=== PATIENT | female | born 1945 | race Caucasian/White ===

== ENCOUNTER 2017-04-09 21:11 | Emergency (ER) | payer MEDICARE ==
[~2017-04-09] VITALS: Ht 157.5 cm; Wt 41.0 kg
[~2017-04-09 21:11] MED LIST: ADDE10TA PO; DIAZ5TAB PO; LEVO50TA4 PO; MACR100C PO; PHEN-426 PO
[2017-04-09 21:13] VITALS: BP 171/67; PULSE 96; RESP 15; TEMP 97.8; O2SAT 95
--- NOTE | 2017-04-09 21:55 | PD ---
Physical Exam Date Seen by Provider: Apr 09, 2017 Time Seen by Provider: 21:53 Narrative 71-year-old white female presents to [facility] complains of left rib pain after a fall on Friday. She states that she had fallen onto her left ribs. Since then she's had pain that radiates around her left side to her back. Worse with taking a deep breath. She states the pain is severe. Rates it a 10/10. She does state that she feels short of breath. Worse with activities and taking a deep breath. She denies any neck or back pain. No numbness, tingling or weakness. Vital signs reviewed. Awaiting bed placement. Data Data Last Documented VS Vital Signs Date Time Temp Pulse Resp B/P (MAP) Pulse Ox O2 Delivery O2 Flow Rate FiO2 04/09/17 21:13 97.8 96 15 171/67 (101) [address] [facility] Medical Record Reviewed: No Supervised Visit with KIRIT: Heron Gunter Apr 09, 2017 21:55
[2017-04-09] MEDS ORDERED: ACETAMINOPHEN/HYDROcodone 325 MG/5 MG TAB PO ONE (22:45)
[2017-04-09] MEDS ORDERED: ONDANSETRON ODT 4 MG TAB PO ONE (22:45)
--- NOTE | 2017-04-09 22:47 | PD ---
HPI Chief Complaint: Fall Time Seen by Provider: 22:35 Travel History International Travel<30 days: No Contact w/Intl Traveler<30days: No Traveled to known affect area: No History of Present Illness HPI 71-year-old female with history of COPD, hypertension, presents to the emergency department for evaluation a left rib pain. Patient was standing on a "not very tall" ladder when she fell, striking her left rib cage on the dresser. She did not hit her head or lose consciousness. States that her ribs have been tender and she believes she is beginning to bruise. Is concerned one may be broken. Denies any difficulty breathing. Pain is a constant, aching, 6 out of 10 but with palpation or deep breath exacerbates to a 10 out of 10. His any hemoptysis. No abdominal pain, nausea, or vomiting. She has no other symptoms to report. PFSH Past Medical History Arthritis: No Asthma: No Autoimmune Disease: No Blood Disorders: No Bipolar Disorder: Yes Anxiety: Yes Depression: Yes Heart Rhythm Problems: No Cancer: No Cardiovascular Problems: No High Cholesterol: No Chemotherapy: No Chest Pain: No Congestive Heart Failure: No COPD: Yes Dementia: Yes Diabetes: No Diminished Hearing: No Endocrine: No Gastrointestinal Disorders: Yes (HX PEPTIC ULCER, GASTRITIS, PERFORATED STOMACH ULCER) GERD: No Genitourinary: No Headaches: Yes Hepatitis: No Hiatal Hernia: No Hypertension: Yes (at times but mostly runs normal) Immune Disorder: No Implanted Vascular Access Dvce: No Kidney Stones: No Musculoskeletal: Yes (PAIN DOWN RIGHT LEG POST HERNIATED DISC) Neurologic: No Psychiatric: No Reproductive: No Respiratory: Yes (HX PULMONARY EMBOLI) Migraines: Yes Radiation Therapy: No Renal Failure: No Schizophrenia: Yes Seizures: No Sickle Cell Disease: No Sleep Apnea: No Thyroid Disease: Yes (HYPOTHYROID) Ulcer: Yes Menopausal: Yes Past Surgical History Abdominal Surgery: Yes (RESECTION PEPTIC ULCER, 2 ABD HERNIA REPAIRS) AICD: No Arteriovenous Shunt: No Body Medical Devices: NONE Cardiac Surgery: No Ear Surgery: No Endocrine Surgery: No Eye Surgery: Yes (CATARACT LEFT EYE REMOVED 11/2015) Genitourinary Surgery: No Gynecologic Surgery: No Insulin Pump: No Joint Replacement: No Neurologic Surgery: No Oral Surgery: No Pacemaker: No Thoracic Surgery: No Other Surgery: Yes Social History Alcohol Use: No Tobacco Use: Yes (HAS SMOKED FOR 56+ YRS.) Substance Use: No Allergies-Medications (Allergen,Severity, Reaction): Coded Allergies: penicillin G (Unverified Allergy, Severe, Anaphylaxis, 04/09/17) latex (Unverified Allergy, Intermediate, Rash, 04/09/17) HAPPENS WITH PROLONGED CONTACT Reported Meds & Prescriptions Reported Meds & Active Scripts Active Ibuprofen 400 Mg Tab 400 Mg PO Q8H PRN Lortab (Hydrocodone-Acetaminophen) 5-325 Mg Tab 1 Tab PO Q6H PRN Pyridium (Phenazopyridine HCl) 100 Mg Tab 100 Mg PO TID Macrobid (Nitrofurantoin Macrocrystals) 100 Mg Cap 100 Mg PO BID Reported Levothyroxine 50 mcg (Levothyroxine Sodium) 50 Mcg Tab 50 Mcg PO DAILY Adderall 10 Mg Tab 10 Mg PO DAILY Diazepam 5 mg (Diazepam) 5 Mg Tab 5 Mg PO Q12 Review of Systems Except as stated in HPI: all other systems reviewed are Neg Physical Exam Narrative GENERAL: Well-nourished, well-developed email patient, ambulatory and in no acute distress SKIN: Focused skin assessment warm/dry. HEAD: Normocephalic. EYES: No scleral icterus. No injection or drainage. NECK: Supple, trachea midline. No JVD or lymphadenopathy. CARDIOVASCULAR: Regular rate and rhythm RESPIRATORY: Breath sounds diminished bilateral bases, equal bilaterally. No accessory muscle use. No crepitus to palpation of the thoracic cage. There is tenderness along the anterior lateral aspect of the left rib cage. Respirations GASTROINTESTINAL: Abdomen soft, non-tender, nondistended. No guarding. No rebound tenderness. No rigidity. MUSCULOSKELETAL: No cyanosis, or edema. BACK: Nontender without obvious deformity. No CVA tenderness. Data Data Last Documented VS Vital Signs Date Time Temp Pulse Resp B/P (MAP) Pulse Ox O2 Delivery O2 Flow Rate FiO2 04/09/17 21:13 97.8 96 15 171/67 (101) 95 Room Air Orders Orders Ribs, Uni (W/Exp Cxr-Min 3vw) (04/09/17 21:55) Acetamin-Hydrocod 325-5 Mg (Chancellor 5-325 (04/09/17 22:45) Ondansetron Odt (Zofran Odt) (04/09/17 22:45) Resp Incentive Spirometry (04/09/17 ) MDM Medical Decision Making Medical Screen Exam Complete: Yes Emergency Medical Condition: Yes Medical Record Reviewed: Yes Differential Diagnosis Rib contusion versus fracture versus pneumothorax versus visceral injury Narrative Course 21-year-old female presents to emergency department for evaluation of left rib pain following a fall. Patient appears without distress. Her abdominal exam is completely benign. She does have tenderness elicited palpation over the left anterolateral rib cage. X-ray imaging is without any acute bony abnormality. Patient is treated for pain, counseled on care, offered incentive spirometry and instructed to follow-up with her primary care provider. She agrees to return immediately with any acute worsening of symptoms. Diagnosis Primary Impression: Contusion of rib on left side Qualified Codes: S20.212A - Contusion of left front wall of thorax, initial encounter Referrals: Primary Care Physician Patient Instructions: General Instructions, Rib Contusion (ED) Additional Instructions: It is important that you take deep breaths and cough Incentive spirometer 10 times on the hour every hour while awake Return immediately to the emergency department with any acute worsening of symptoms Med/Other Pt SpecificInfo: Prescription(s) given Scripts Ibuprofen (Ibuprofen) 400 Mg Tab 400 MG PO Q8H Y for PAIN SCALE 1 TO 10, #30 TAB 0 Refills Prov: Erika Rivas 04/09/17 Hydrocodone-Acetaminophen (Lortab) 5-325 Mg Tab 1 TAB PO Q6H Y for PAIN GREATER THAN 6, #12 TAB 0 Refills Prov: Erika Rivas 04/09/17 Disposition: 01 DISCHARGE HOME Condition: Stable Erika Rivas Apr 09, 2017 22:47
--- NOTE | 2017-04-09 22:56 | RADRPT ---
EXAM DATE/TIME: 04/09/2017 22:05 [place] COMPARISON: No previous studies available for comparison. INDICATIONS : Left side rib pain since falling into a dresser 3 nights ago. MEDICAL HISTORY : None. SURGICAL HISTORY : None. ENCOUNTER: Initial ACUITY: 3 days PAIN SCORE: 10/10 LOCATION: Left chest FINDINGS: No acute fracture or dislocation of the left ribs. No pneumothorax is noted. Degenerative changes and scoliosis of the thoracolumbar spine. CONCLUSION: No acute fracture or dislocation of the left ribs. Degenerative changes and scoliosis of the thoracolumbar spine. Agustín Kenney MD on April 09, 2017 at 22:53 Board Certified Radiologist. This report was verified electronically.
[2017-04-09] MEDS ORDERED: IBUP400T20 PO (23:01)
[2017-04-09] MEDS ORDERED: HYDR-3533 PO (23:01)
== END 2017-04-10 00:58 | disposition home or self-care (01) ==
LOC: NEPK 21:11
DX: S20.212A Contusion of left front wall of thorax, initial encounter (principal); J44.9 Chronic obstructive pulmonary disease, unspecified; E03.9 Hypothyroidism, unspecified; F17.210 Nicotine dependence, cigarettes, uncomplicated; W11.XXXA Fall on and from ladder, initial encounter
CPT/HCPCS: 71101; 94150; 99283

== ENCOUNTER 2017-07-27 08:28 | Inpatient (IN) | payer MEDICARE ==
[~2017-07-27] VITALS: Ht 157.5 cm; Wt 43.4 kg
[~2017-07-27 08:28] MED LIST changes: +HYDR-3533 PO; +IBUP1TAB5 PO
[2017-07-27 08:30] VITALS: BP 154/71; PULSE 102; RESP 22; TEMP 97.7
[2017-07-27] MEDS ORDERED: inhaler (08:41)
[2017-07-27] MEDS ORDERED: MULTTAB67 PO (08:43)
[2017-07-27] MEDS ORDERED: anti-depressant (08:43)
[2017-07-27] MEDS ORDERED: ABIL15TA3 PO (08:43)
[2017-07-27] MEDS ORDERED: DIAZ5TAB PO (08:43)
[2017-07-27 09:04] VITALS: O2SAT 98
--- NOTE | 2017-07-27 09:11 | PD ---
HPI Chief Complaint: Musculoskeletal Complaint Time Seen by Provider: 08:50 Travel History International Travel<30 days: Yes Contact w/Intl Traveler<30days: Yes Name of Country Traveled to: [place] 07/12/17 Traveled to known affect area: Yes History of Present Illness HPI The patient was seen and examined in the presence of the nurse. This patient complains of 24 hours of pain and swelling and redness in her left ankle. No injury. No fever. Pain is worse with movement. Symptoms are moderate severity. No alleviating factors. She's had this happen 3 separate times in the past where a joint spontaneously got hot and red and swollen and painful. She does not have any specific diagnosis for the prior events. PFSH Past Medical History Arthritis: No Asthma: No Autoimmune Disease: No Blood Disorders: No Bipolar Disorder: Yes Anxiety: Yes Depression: Yes Heart Rhythm Problems: No Cancer: No Cardiovascular Problems: No High Cholesterol: No Chemotherapy: No Chest Pain: No Congestive Heart Failure: No COPD: Yes Dementia: Yes Diabetes: No Diminished Hearing: No Endocrine: No Gastrointestinal Disorders: Yes (HX PEPTIC ULCER, GASTRITIS, PERFORATED STOMACH ULCER) GERD: No Genitourinary: No Headaches: Yes Hepatitis: No Hiatal Hernia: No Hypertension: Yes Immune Disorder: No Implanted Vascular Access Dvce: No Kidney Stones: No Medical other: Yes (ANEMIA, ABDOMINAL HERNIA RIGHT LOWER ABDOMEN, MIGRAINES) Musculoskeletal: Yes (PAIN DOWN RIGHT LEG POST HERNIATED DISC) Neurologic: No Psychiatric: No Reproductive: No Respiratory: Yes (HX PULMONARY EMBOLI) Migraines: Yes Radiation Therapy: No Renal Failure: No Schizophrenia: Yes Seizures: No Sickle Cell Disease: No Sleep Apnea: No Thyroid Disease: Yes (HYPOTHYROID) Ulcer: Yes Menopausal: Yes Past Surgical History Abdominal Surgery: Yes (RESECTION PEPTIC ULCER, 2 ABD HERNIA REPAIRS) AICD: No Arteriovenous Shunt: No Body Medical Devices: NONE Cardiac Surgery: No Ear Surgery: No Endocrine Surgery: No Eye Surgery: Yes (CATARACT LEFT EYE REMOVED 11/2015) Genitourinary Surgery: No Gynecologic Surgery: No Insulin Pump: No Joint Replacement: No Neurologic Surgery: No Oral Surgery: No Pacemaker: No Thoracic Surgery: No Other Surgery: Yes Social History Alcohol Use: No Tobacco Use: Yes (HAS SMOKED FOR 56+ YRS.) Substance Use: No Allergies-Medications (Allergen,Severity, Reaction): Coded Allergies: penicillin G (Unverified Allergy, Severe, Anaphylaxis, 07/27/17) latex (Unverified Allergy, Intermediate, Rash, 07/27/17) HAPPENS WITH PROLONGED CONTACT Reported Meds & Prescriptions Reported Meds & Active Scripts Active Reported Multiple Vitamin 1 Tab 1 Tab PO DAILY [anti-depressant] Abilify (Aripiprazole) 15 Mg Tab 15 Mg PO DAILY Diazepam 5 Mg Tab 5 Mg PO BID [inhaler] Unknown Dose Review of Systems General / Constitutional: No: Fever Eyes: No: Visual changes HENT: No: Headaches Cardiovascular: No: Chest Pain or Discomfort Respiratory: No: Shortness of Breath Gastrointestinal: No: Abdominal Pain Genitourinary: No: Dysuria Musculoskeletal: Positive: Arthralgias, Limited ROM, Pain Skin: No Rash Neurologic: No: Weakness Psychiatric: No: Depression Endocrine: No: Polydipsia Hematologic/Lymphatic: No: Easy Bruising Physical Exam Narrative GENERAL: Well-nourished, well-developed patient with left ankle pain . SKIN: Focused skin assessment reveals no rash and nodules. Skin is Warm and dry. HEAD: Atraumatic. Normocephalic. EYES: Pupils equal and round. No scleral icterus. No injection or drainage. ENT: No nasal bleeding or discharge. Mucous membranes pink and moist. NECK: Trachea midline. No JVD. CARDIOVASCULAR: Regular rate and rhythm. No murmur appreciated. RESPIRATORY: No accessory muscle use. Clear to auscultation. Breath sounds equal bilaterally. GASTROINTESTINAL: Abdomen soft, non-tender, nondistended. Hepatic and splenic margins not palpable. MUSCULOSKELETAL: Has swelling and tenderness and warmth in the left ankle. Pain is worse with movement. No clubbing. No cyanosis. Pulse and sensation intact NEUROLOGICAL: Awake and alert. No obvious cranial nerve deficits. Motor grossly within normal limits. Normal speech. PSYCHIATRIC: Appropriate mood and affect; insight and judgment normal. Data Data Last Documented VS Vital Signs Date Time Temp Pulse Resp B/P (MAP) Pulse Ox O2 Delivery O2 Flow Rate FiO2 07/27/17 09:04 98 07/27/17 08:44 17 07/27/17 08:30 97.7 102 154/71 (98) Orders Orders Iv Access Insert/Monitor (07/27/17 09:04) Complete Blood Count With Diff (07/27/17 09:04) Uric Acid (07/27/17 09:04) Oxycodone-Acetamin 5-325 Mg (Percocet (07/27/17 09:15) Lidocai-Epi 1%-1:100,000 Inj (Xylocaine- (07/27/17 09:30) Lidocai-Epi 1%-1:100,000 Inj (Xylocaine- (07/27/17 09:30) Lidocai-Epi 1%-1:100,000 Inj (Xylocaine- (07/27/17 09:30) Lidocai-Epi 1%-1:100,000 Inj (Xylocaine- (07/27/17 09:30) Synovial Fluid Crystals (07/27/17 10:00) Synovial Fl Cell Count + Diff (07/27/17 10:00) Fluid Culture And Gram Stain (07/27/17 10:00) Admit To Inpatient (07/27/17 ) Code Status (07/27/17 12:17) Vital Signs (Adult) Q4H (07/27/17 12:17) Activity Oob With Assistance (07/27/17 12:17) Sodium Chloride 0.9% Flush (Ns Flush) (07/27/17 12:30) Sodium Chloride 0.9% Flush (Ns Flush) (07/27/17 21:00) Acetaminophen (Tylenol) (07/27/17 12:30) Ondansetron Inj (Zofran Inj) (07/27/17 12:30) Basic Metabolic Panel (Bmp) (07/28/17 06:00) Complete Blood Count With Diff (07/28/17 06:00) Chest, Single Ap (07/27/17 12:17) Electrocardiogram (07/27/17 12:17) Pt Request For Service (07/27/17 12:17) Enoxaparin Inj (Lovenox Inj) (07/27/17 12:30) Naloxone Inj (Narcan Inj) (07/27/17 12:30) Magnesium Hydroxide Liq (Milk Of Magnesi (07/27/17 12:30) Inpatient Certification (07/27/17 ) Diet Regular Basic (07/27/17 Lunch) Admit Order (Ed Use Only) (07/27/17 12:21) Labs Laboratory Tests Test 07/27/17 09:15 07/27/17 10:00 White Blood Count 14.0 TH/MM3 Red Blood Count 4.41 MIL/MM3 Hemoglobin 12.1 GM/DL Hematocrit 36.8 % Mean Corpuscular Volume 83.5 FL Mean Corpuscular Hemoglobin 27.4 PG Mean Corpuscular Hemoglobin Concent 32.8 % Red Cell Distribution Width 14.3 % Platelet Count 329 TH/MM3 Mean Platelet Volume 8.8 FL Neutrophils (%) (Auto) 81.2 % Lymphocytes (%) (Auto) 8.1 % Monocytes (%) (Auto) 9.7 % Eosinophils (%) (Auto) 0.2 % Basophils (%) (Auto) 0.8 % Neutrophils # (Auto) 11.4 TH/MM3 Lymphocytes # (Auto) 1.1 TH/MM3 Monocytes # (Auto) 1.4 TH/MM3 Eosinophils # (Auto) 0.0 TH/MM3 Basophils # (Auto) 0.1 TH/MM3 CBC Comment DIFF FINAL Differential Comment Uric Acid 3.5 MG/DL Synovial Fluid Color RED Synovial Fluid Appearance MODERATE Synovial Fluid WBC 16098 /MM3 Synovial Fluid RBC 62106 /MM3 Synovial Fluid Neutrophils 96 % Synovial Fluid Lymphocytes 0 % Synovial Fluid Monocytes 4 % Synovial Fluid Differential Comment Synovial Fluid Crystals NONE MDM Medical Decision Making Medical Screen Exam Complete: Yes Emergency Medical Condition: Yes Medical Record Reviewed: Yes Interpretation(s) Gout flare, inflammatory arthritis, septic joint Differential Diagnosis I have reviewed the patient's electronic medical record. IV placed CBC shows some nonspecific leukocytosis of 14,000 Uric acid is only 3.5 Fluid studies reveal no uric acid crystals Cell count is 31.5 thousand Likely was traumatic tap revealing why there is blood there Gram stain shows no organisms Culture is pending Is not entirely clear if this is a septic joint. The 31,000 number more in the range of inflammatory condition but there is no doubt crystals complained this on. Also it's hot red swollen and pain with passive motion as well as leukocytosis. I discussed with for healthcare hospitalist Dr. Jones who will admit and start some IV antibiotics until this can be further sorted out. Narrative Course I performed a left ankle arthrocentesis as noted in below procedure note Procedures Procedure Narrative Procedure note: I discuss risks and benefits and alternatives. I think the patient should have arthrocentesis of the left ankle to rule out septic joint and evaluate for gout crystals. The patient agrees. She signed formal consent. I anesthetized the anterior left ankle with 3 cc of 1% lidocaine with epinephrine after cleansing with Betadine sticks I located landmarks including extensor hallucis longus tendon and medial malleolus and tibial border I used an 18-gauge needle and and anterior approach. I injected medial to the extensor hallucis longus is tendon. I entered the joint space and obtained some synovial fluid, 8 cc in total. It was a bloody serous fluid. It was sent for cell count and differential and culture and sensitivity and Gram stain and crystal analysis Tolerated well without complication Diagnosis Primary Impression: Septic joint Qualified Codes: M00.9 - Pyogenic arthritis, unspecified Admitting Information Admitting Physician Requests: James Nova MD Jul 27, 2017 09:11
[2017-07-27] MEDS ORDERED: oxyCODONE/ACETAMINOPHEN 5 MG/325 MG TAB PO ONE (09:15)
[2017-07-27 09:30] LABS: AUTOMATED NEUTROPHIL # 11.4 TH/MM3 (1.8-7.7); BASOPHIL # 0.1 TH/MM3 (0-0.2); BASOPHIL % 0.8 % (0.0-2.0); EOSINOPHIL % 0.2 % (0.0-4.0); HEMATOCRIT 36.8 % (35.0-46.0); HEMOGLOBIN 12.1 GM/DL (11.6-15.3); LYMPH % 8.1 % (9.0-44.0); LYMPHOCYTE # 1.1 TH/MM3 (1.0-4.8); MEAN CELL VOLUME 83.5 FL (80.0-100.0); MEAN CORPUSCULAR HEMOGLOBIN 27.4 PG (27.0-34.0); MEAN CORPUSCULAR HGB CONC 32.8 % (32.0-36.0); MEAN PLATELET VOLUME 8.8 FL (7.0-11.0); MONO % 9.7 % (0.0-8.0); MONOCYTE # 1.4 TH/MM3 (0-0.9); NEUT % 81.2 % (16.0-70.0); PLATELET COUNT 329 TH/MM3 (150-450); RED BLOOD COUNT 4.41 MIL/MM3 (4.00-5.30); RED CELL DISTRIBUTION WIDTH 14.3 % (11.6-17.2)
[2017-07-27] MEDS ORDERED: LIDOCAINE 1%/EPINEPHrine 1:100,000 SOLN 20 ML VIAL INFIL ONE ×3 (09:30)
[2017-07-27] MEDS ORDERED: LIDOCAINE 1%/EPINEPHrine 1:100,000 SOLN 50 ML VIAL INFIL ONE (09:30)
[2017-07-27 11:48] LABS: WBC, SYNOVIAL FLUID 31500 /MM3 (0-200)
[2017-07-27] MEDS ORDERED: SODIUM CHLORIDE 0.9% FLUSH 10 ML FLUSH IV FLUSH PRN (12:30)
[2017-07-27] MEDS ORDERED: ONDANSETRON HCL 4 MG/2 ML VIAL IVP PRN (12:30)
[2017-07-27] MEDS ORDERED: ACETAMINOPHEN 325 MG TAB PO PRN (12:30)
[2017-07-27] MEDS ORDERED: NALOXONE HCL 0.4 MG/ML AMP IV PUSH PRN (12:30)
[2017-07-27] MEDS ORDERED: MAGNESIUM HYDROXIDE SUSP 30 ML CUP PO PRN (12:30)
[2017-07-27] MEDS ORDERED: Vancomycin Consult Pharmacy 1 EA OTHER SCH (12:30)
--- NOTE | 2017-07-27 12:38 | HHI.HP ---
HPI Service [facility] Hospitalists Primary Care Physician Joe Nieves MD Admission Diagnosis Septic joint Chief Complaint: Left ankle redness and swelling times one day Travel History International Travel<30 Days: Yes Contact w/Intl Traveler <30 Da: Yes Name of Country Traveled to: [place] 07/12/17 Traveled to Known Affected Are: Yes History of Present Illness This is a cachetic 71 year old female patient with a past medical history which includes chronic obstructive pulmonary disease, hypothyroidism - not on medication, lumbar degenerative disc disease, lumbar radiculopathy, PE at age 29 and perforated peptic ulcer s/o gastrectomy. Patient presented to the emergency department with complains of 24 hours of pain, swelling and redness in her left ankle. Patient denies specific injury to the left ankle. Patient also had subjective fever last night. Pain is worse with movement. Patient reports she has had similar swelling in her left hand which resolved spontaneously. She does not have any specific diagnosis for the prior events. Patient denies chills, nausea, vomiting, diarrhea, constipation, shortness of breath or chest pain Review of Systems Constitutional: COMPLAINS OF: Fever, DENIES: Fatigue, Chills Eyes: DENIES: Blurred vision, Diplopia, Vision loss Respiratory: DENIES: Cough, Sputum production, Shortness of breath Cardiovascular: DENIES: Chest pain, Palpitations, Dyspnea on Exertion Gastrointestinal: DENIES: Abdominal pain, Constipation, Diarrhea, Nausea, Vomiting Musculoskeletal: COMPLAINS OF: Joint pain, Stiffness, Joint Swelling Integumentary: COMPLAINS OF: Abnormal pigmentation Neurologic: DENIES: Abnormal gait, Headache, Speech Problems Psychiatric: DENIES: Anxiety, Confusion, Depression Past Family Social History Past Medical History chronic obstructive pulmonary disease, hypothyroidism - not on medication, lumbar degenerative disc disease, lumbar radiculopathy, PE at age 29 and perforated peptic ulcer s/o gastrectomy Past Surgical History Back surgery L4-5 area partial gastrectomy secondary to perforated peptic ulcer Reported Medications Multiple Vitamin 1 Tab 1 Tab PO DAILY [anti-depressant] Abilify (Aripiprazole) 15 Mg Tab 15 Mg PO DAILY Diazepam 5 Mg Tab 5 Mg PO BID [inhaler] Unknown Dose Allergies: Coded Allergies: penicillin G (Unverified Allergy, Severe, Anaphylaxis, 07/27/17) latex (Unverified Allergy, Intermediate, Rash, 07/27/17) HAPPENS WITH PROLONGED CONTACT Active Ordered Medications Current Medications Medications (Trade) Dose Ordered Sig/Taylor Route Start Time Stop Time Status Last Admin (NS Flush) 2 ml UNSCH PRN IV FLUSH 07/27/17 12:30 UNV (NS Flush) 2 ml BID IV FLUSH 07/27/17 21:00 UNV (Tylenol) 650 mg Q4H PRN PO 07/27/17 12:30 UNV (Zofran Inj) 4 mg Q6H PRN IVP 07/27/17 12:30 UNV (Lovenox Inj) 30 mg Q24H SQ 07/27/17 12:30 UNV (Narcan Inj) 0.4 mg UNSCH PRN IV PUSH 07/27/17 12:30 UNV (Milk Of Magnchandni Liq) 30 ml Q12H PRN PO 07/27/17 12:30 UNV Family History Noncontributory Social History History of EtOH abuse denies current EtOH use Current tobacco use one pack per day Denies illicit drug use Physical Exam Vital Signs Vital Signs Date Time Temp Pulse Resp B/P (MAP) Pulse Ox O2 Delivery O2 Flow Rate FiO2 07/27/17 09:04 98 07/27/17 08:44 17 07/27/17 08:30 97.7 102 22 154/71 (98) Physical Exam GENERAL: This is a cachetic, well-developed patient, in no apparent distress. SKIN: left ankle edematous with erythema. HEAD: Atraumatic. Normocephalic. No temporal or scalp tenderness. NECK: Trachea midline. No JVD or lymphadenopathy. Supple, nontender, no meningeal signs. CARDIOVASCULAR: Regular rate and rhythm without murmurs, gallops, or rubs. Clubbing bilateral digits RESPIRATORY: Clear to auscultation. Breath sounds equal bilaterally. GASTROINTESTINAL: Abdomen soft, non-tender, nondistended. MUSCULOSKELETAL: Extremities without clubbing, cyanosis, or edema. No joint tenderness, effusion, or edema noted. No calf tenderness. Negative Homans sign bilaterally. NEUROLOGICAL: Awake and alert. No focal deficits. Motor and sensory grossly within normal limits. Five out of 5 muscle strength in all muscle groups. Normal speech. Laboratory Laboratory Tests Test 07/27/17 09:15 07/27/17 10:00 White Blood Count 14.0 Red Blood Count 4.41 Hemoglobin 12.1 Hematocrit 36.8 Mean Corpuscular Volume 83.5 Mean Corpuscular Hemoglobin 27.4 Mean Corpuscular Hemoglobin Concent 32.8 Red Cell Distribution Width 14.3 Platelet Count 329 Mean Platelet Volume 8.8 Neutrophils (%) (Auto) 81.2 Lymphocytes (%) (Auto) 8.1 Monocytes (%) (Auto) 9.7 Eosinophils (%) (Auto) 0.2 Basophils (%) (Auto) 0.8 Neutrophils # (Auto) 11.4 Lymphocytes # (Auto) 1.1 Monocytes # (Auto) 1.4 Eosinophils # (Auto) 0.0 Basophils # (Auto) 0.1 CBC Comment DIFF FINAL Differential Comment Uric Acid 3.5 Synovial Fluid Color RED Synovial Fluid Appearance MODERATE Synovial Fluid WBC 61229 Synovial Fluid RBC 96506 Synovial Fluid Neutrophils 96 Synovial Fluid Lymphocytes 0 Synovial Fluid Monocytes 4 Synovial Fluid Differential Comment Synovial Fluid Crystals NONE Date/Time Source Procedure Growth Status 07/27/17 10:00 Fluid Synovial Fluid Gram Stain - Final Resulted 07/27/17 10:00 Fluid Synovial Fluid Body Fluid Culture Pending Resulted Result Diagram: 07/27/17 0915 Imaging Last Impressions Chest X-Ray 07/27/17 1217 Signed Impressions: Service Date/Time: Thursday, July 27, 2017 12:37 - CONCLUSION: 1. No acute cardiopulmonary disease. Saleem ePace MD Caplibradoi VTE Risk Assessment Caprini VTE Risk Assessment: Mod/High Risk (score >= 2) Caprini Risk Assessment Model Point Value = 1 Point Value = 2 Point Value = 3 Point Value = 5 Age 41-60 Minor surgery BMI > 25 kg/m2 Swollen legs Varicose veins or History of unexplained or recurrent spontaneous Oral contraceptives or hormone replacement Sepsis (< 1 month) Serious lung disease, including pneumonia (< 1 month) Abnormal pulmonary function Acute myocardial infarction Congestive heart failure (< 1 month) History of inflammatory bowel disease Medical patient at bed rest Age 61-74 Arthroscopic surgery Major open surgery (> 45 min) Laparoscopic surgery (> 45 min) Malignancy Confined to bed (> 72 hours) Immobilizing plaster cast Central venous access Age >= 75 History of VTE Family history of VTE Factor V Leiden Prothrombin [id number] Lupus anticoagulant Anticardiolipin antibodies Elevated serum homocysteine Heparin-induced thrombocytopenia Other congenital or acquired thrombophilia Stroke (< 1 month) Elective arthroplasty Hip, pelvis, or leg fracture Acute spinal cord injury (< 1 month) Prophylaxis Regimen Total Risk Factor Score Risk Level Prophylaxis Regimen 0-1 Low Early ambulation 2 Moderate Order ONE of the following: *Sequential Compression Device (SCD) *Heparin 5000 units SQ BID 3-4 Higher Order ONE of the following medications: *Heparin 5000 units SQ TID *Enoxaparin/Lovenox 40 mg SQ daily (WT < 150 kg, CrCl > 30 mL/min) *Enoxaparin/Lovenox 30 mg SQ daily (WT < 150 kg, CrCl > 10-29 mL/min) *Enoxaparin/Lovenox 30 mg SQ BID (WT < 150 kg, CrCl > 30 mL/min) AND/OR *Sequential Compression Device (SCD) 5 or more Highest Order ONE of the following medications: *Heparin 5000 units SQ TID (Preferred with Epidurals) *Enoxaparin/Lovenox 40 mg SQ daily (WT < 150 kg, CrCl > 30 mL/min) *Enoxaparin/Lovenox 30 mg SQ daily (WT < 150 kg, CrCl > 10-29 mL/min) *Enoxaparin/Lovenox 30 mg SQ BID (WT < 150 kg, CrCl > 30 mL/min) AND *Sequential Compression Device (SCD) Assessment and Plan Problem List: (1) Septic joint ICD Codes: M00.9 - Pyogenic arthritis, unspecified Status: Acute Plan: Left ankle aspirated in the emergency department reveals 31,500 synovial white blood cells and no crystals Fluid cultures and Gram stain pending Start patient on vancomycin Consult infectious disease Consult orthopedic surgery PT request DVT prophylaxis with Lovenox (2) COPD (chronic obstructive pulmonary disease) ICD Codes: J44.9 - Chronic obstructive pulmonary disease, unspecified Status: Chronic Plan: Duo nebs as needed does not appear to be in acute exacerbation (3) Hypothyroidism ICD Codes: E03.9 - Hypothyroidism, unspecified Plan: Not on medication check TSH and Free T4 Assessment and Plan Patient examined. Assessment and plan formulated with Tejal PECK I agree with the above. Physician Certification 2 Midnight Certification Type: Admission for Inpatient Services Order for Inpatient Services The services are ordered in accordance with Medicare regulations or non- Medicare payer requirements, as applicable. In the case of services not specified as inpatient-only, they are appropriately provided as inpatient services in accordance with the 2-midnight benchmark. Estimated LOS (days): 3 days is the estimated time the patient will need to remain in the hospital, assuming treatment plan goals are met and no additional complications. Post-Hospital Plan: Not yet determined Problem Qualifiers (1) Septic joint: Qualified Codes: M00.9 - Pyogenic arthritis, unspecified Tejal Irvin Jul 27, 2017 12:38 Jacek Jones DO Jul 31, 2017 01:10
[2017-07-27] MEDS ORDERED: VANCOMYCIN INJ 1,000 MG in SODIUM CHLOR 0.9% 250 ML INJ 250 ML IV SCH (13:00)
[2017-07-27 13:10] VITALS: BP 147/67; PULSE 97; RESP 17; O2SAT 99
[2017-07-27] MEDS: ENOXAPARIN SODIUM 30 MG/0.3 ML SYRINGE SQ SCH (13:13)
[2017-07-27 13:35] VITALS: BP 143/68; PULSE 100; RESP 16; TEMP 98.3; O2SAT 95
--- NOTE | 2017-07-27 13:47 | RADRPT ---
EXAM DATE/TIME: 07/27/2017 12:37 [facility] COMPARISON: No previous studies available for comparison. INDICATIONS : Swelling in legs with cough MEDICAL HISTORY : None. SURGICAL HISTORY : None. ENCOUNTER: Initial ACUITY: 1 day PAIN SCORE: 0/10 LOCATION: Bilateral chest FINDINGS: The cardiac silhouette is normal in transverse diameter. There is prominence of the aortic knob is wi th calcification characteristic of atherosclerotic vascular disease. The lungs are free of acute pare nchymal opacity. No effusions are identified. CONCLUSION: 1. No acute cardiopulmonary disease. Saleem Peace MD on July 27, 2017 at 13:44 Board Certified Radiologist. This report was verified electronically.
[2017-07-27] MEDS: ACETAMINOPHEN/HYDROcodone 325 MG/5 MG TAB PO PRN ×2 (16:53→21:52)
[2017-07-27] MEDS ORDERED: RESP: ALBUTEROL 2.5 MG/IPRATROPIUM 0.5 MG NEB (PRN) NEB (18:00)
[2017-07-27] MEDS ORDERED: LORazepam 2 MG/ML VIAL IV PUSH PRN (18:00)
[2017-07-27 20:15] VITALS: BP 122/60; PULSE 95; RESP 16; TEMP 98; O2SAT 96
[2017-07-27 21:41] LABS: CALCIUM 8.7 MG/DL (8.5-10.1); CREATININE 0.63 MG/DL (0.50-1.00)
[2017-07-27] MEDS: SODIUM CHLORIDE 0.9% FLUSH 10 ML FLUSH IV FLUSH SCH (21:50)
[2017-07-28] VITALS: BP 126/74; PULSE 95; RESP 18; TEMP 98.3; O2SAT 93
[2017-07-28 04:00] VITALS: BP 154/70; PULSE 92; RESP 16; TEMP 97.9; O2SAT 90
[2017-07-28] MEDS: VANCOMYCIN INJ 750 MG in SODIUM CHLOR 0.9% 250 ML INJ 250 ML IV SCH ×2 (04:14→12:37)
[2017-07-28] MEDS: ACETAMINOPHEN/HYDROcodone 325 MG/5 MG TAB PO PRN (04:29)
[2017-07-28 07:36] LABS: BASOPHIL # 0.1 TH/MM3 (0-0.2); BASOPHIL % 0.8 % (0.0-2.0); EOSINOPHIL % 0.3 % (0.0-4.0); HEMATOCRIT 37.1 % (35.0-46.0); HEMOGLOBIN 12.3 GM/DL (11.6-15.3); LYMPH % 14.6 % (9.0-44.0); LYMPHOCYTE # 1.8 TH/MM3 (1.0-4.8); MEAN CELL VOLUME 83.8 FL (80.0-100.0); MEAN CORPUSCULAR HEMOGLOBIN 27.7 PG (27.0-34.0); MEAN CORPUSCULAR HGB CONC 33.1 % (32.0-36.0); MEAN PLATELET VOLUME 9.4 FL (7.0-11.0); MONO % 10.4 % (0.0-8.0); MONOCYTE # 1.3 TH/MM3 (0-0.9); NEUT % 73.9 % (16.0-70.0); PLATELET COUNT 348 TH/MM3 (150-450); RED BLOOD COUNT 4.42 MIL/MM3 (4.00-5.30); RED CELL DISTRIBUTION WIDTH 14.4 % (11.6-17.2); WHITE BLOOD COUNT 12.1 TH/MM3 (4.0-11.0)
--- NOTE | 2017-07-28 07:50 | MB ---
cc: PEG CHRISTOPHER DATE OF ADMISSION 07/27/2017 DATE OF CONSULTATION 07/28/2017 REASON FOR CONSULTATION Left ankle pain and swelling. CONSULTING PHYSICIAN Dr. Jones BRIEF HISTORY Deneen is a 71-year-old female who presented to the emergency room with approximately 24-hour history of left ankle pain and swelling. She has a history of COPD, hypothyroidism, degenerative disc disease, lumbar radiculopathy, pulmonary embolism and reflux. She denies any specific injuries to her ankle. She states she has had similar episodes in her hands where she had pain and swelling. Her previous episodes resolved within 24-48 hours. She is having difficulty walking secondary to her ankle pain. The pain is worse with movement or weightbearing. She denies any recent fevers or chills. PAST MEDICAL HISTORY ILLNESSES 1. COPD. 2. Hypothyroidism. 3. Degenerative disc disease. 4. History of PE. 5. History of perforated ulcer. SURGERIES Lumbar decompression. Partial gastrectomy. MEDICATIONS 1. Abilify. 2. Diazepam. 3. Inhaler. ALLERGIES PENICILLIN. LATEX. FAMILY HISTORY Non-contributory. SOCIAL HISTORY The patient denies current drug or alcohol use. She has a history of alcohol abuse. She does smoke a pack per day. REVIEW OF SYSTEMS The patient denies headache, visual changes, neck pain, chest pain, shortness of breath, abdominal pain, nausea or vomiting or recent weight loss, fever or chills, numbness or tingling of extremities, bowel or bladder incontinence. She complains of left ankle pain. The pain is worse with weightbearing. PHYSICAL EXAMINATION GENERAL: The patient is a very thin, 71-year-old female. She is awake and alert. She is in no acute distress. She is alert and oriented x 3. VITAL SIGNS: Temperature 98.3, pulse 95, respirations 18, blood pressure 126/74. O2 sat is 93% on room air. HEAD: The patient is normocephalic. Pupils are equal. NECK: Soft and nontender. Trachea is midline. ABDOMEN: Soft, nontender, nondistended. EXTREMITIES: Examination of the bilateral upper extremities reveals no pain with shoulder, elbow or wrist motion. She has intact sensation of all finges. She has good capillary refill in all fingers. Radial pulses are palpable. Examination of the right leg reveals no pain with hip, knee or ankle motion. She skin is intact. Dorsalis pedis pulse is palpable. Sensation is intact. Examination of the left leg reveals no pain with hip or knee motion. Calf compartments are soft. She has mild to moderate swelling around her ankle. She has limited ankle range of motion secondary to pain. She has minimal tenderness over the distal tibia or fibula. There is no fluctuance noted. Dorsalis pedis pulse is palpable. IMPRESSION 1. smoking dependence. 2. Left ankle pain and swelling. 3. COPD. 4. Hypothyroidism. PLAN The treatment options were discussed with the patient. The left ankle was aspirated yesterday. We will await the final results for possible infection. I explained to her that, if she does have an infection of her ankle, she will need surgical irrigation and debridement with arthrotomy of the ankle as well as prolonged antibiotics. This may be an inflammatory response given her history of having similar episodes in her hand. I will continue to follow the patient's progress. I would recommend physical therapy consult. She may weight-bear as tolerated. I will also go ahead and order x-rays of her ankle to evaluate for possible fracture given that she is unable to bear weight. All questions were answered. A mid-level provider in my office, nurse practitioner or PA, may see this patient on a follow-up basis and continue to implement the objective of this plan including: Starting or adjusting medications, injections of muscle, tendon, bursa or joints, cast application, orthotic or brace application, physical therapy, further radiographic studies including x-ray, MRI, CT, ultrasounds or bone scan, vascular studies, neurologic studies, or other specialist consultations, and proceeding with surgical management as appropriate. MD DUSTIN Ash/JAYSON /7:13 AM 7:18 AM COREY
[2017-07-28 08:00] VITALS: BP 140/74; PULSE 94; RESP 20; TEMP 97.3; O2SAT 94
[2017-07-28 08:02] LABS: BICARBONATE 27.8 MEQ/L (21.0-32.0); CREATININE 0.52 MG/DL (0.50-1.00)
[2017-07-28 08:11] LABS: FREE T4 0.95 NG/DL (0.76-1.46)
[2017-07-28] MEDS: SODIUM CHLORIDE 0.9% FLUSH 10 ML FLUSH IV FLUSH SCH ×2 (08:32→22:02)
--- NOTE | 2017-07-28 09:19 | HHI.PR ---
Subjective Remarks left ankle less painful but still hard to ambulate Objective Vitals heart reg lung cta abd s/nt ext left ankle swollen/tender reduced range motion Vital Signs Date Time Temp Pulse Resp B/P (MAP) Pulse Ox O2 Delivery O2 Flow Rate FiO2 07/28/17 04:00 97.9 92 16 154/70 (98) 90 07/28/17 00:00 98.3 95 18 126/74 (91) 93 07/27/17 20:15 98.0 95 16 122/60 (80) 96 07/27/17 18:14 20 07/27/17 13:35 98.3 100 16 143/68 (93) 95 07/27/17 13:26 07/27/17 13:10 97 17 147/67 (93) 99 Room Air Result Diagram: 07/28/17 0700 07/28/17 0700 Imaging Last Impressions Chest X-Ray 07/27/17 1217 Signed Impressions: Service Date/Time: Thursday, July 27, 2017 12:37 - CONCLUSION: 1. No acute cardiopulmonary disease. Saleem Peace MD A/P Problem List: (1) Inflammatory arthritis ICD Codes: M19.90 - Unspecified osteoarthritis, unspecified site Status: Acute Plan: 1. Left ankle pain/swelling. Recent wrist/mcp/pip swelling and Raynauds phenomena per history. Possible inflammatory arthritis and undiagnosed rheumatological disorder Left ankle aspirated in the emergency department reveals 31,500 synovial white blood cells and no crystals Fluid cultures and Gram stain pending to exclude septic ankle pt was started on vanco in ED ID and Ortho consulted If negative for infection would give trial of steroids and rheumatology referral. PT eval (2) COPD (chronic obstructive pulmonary disease) ICD Codes: J44.9 - Chronic obstructive pulmonary disease, unspecified Status: Chronic Plan: Duo nebs as needed does not appear to be in acute exacerbation Sunil Mayorga MD Jul 28, 2017 09:19
--- NOTE | 2017-07-28 09:48 | RADRPT ---
EXAM DATE/TIME: 07/28/2017 09:20 [facility] COMPARISON: No previous studies available for comparison. INDICATIONS : Patient states left ankle pain and swelling. MEDICAL HISTORY : None. SURGICAL HISTORY : None. ENCOUNTER: Initial ACUITY: 2 days PAIN SCORE: 10/10 LOCATION: Left Ankle FINDINGS: Three view exam was performed of the left ankle. The bony structures are in normal alignment. No ev idence of fracture, dislocation, or soft tissue swelling. The ankle mortise is intact. No radiopaqu e foreign bodies are seen. Bony mineralization is normal. CONCLUSION: Negative for fracture or dislocation. Follow up in 7-10 days is suggested if symptoms persist. Darin Gruber MD FACR on July 28, 2017 at 9:45 Board Certified Radiologist. This report was verified electronically.
[2017-07-28 12:00] VITALS: BP 172/67; PULSE 105; RESP 20; TEMP 97.8; O2SAT 92
[2017-07-28] MEDS: ENOXAPARIN SODIUM 30 MG/0.3 ML SYRINGE SQ SCH (12:37)
--- NOTE | 2017-07-28 13:16 | PD.ID.CON ---
History of Present Illness Service ID Consult Requested By Reason for Consult Evaluation and Mment of Possible infected/septic arthritis. Primary Care Physician Joe Nieves MD Diagnoses: History of Present Illness Ms. Todd is a 71-year-old very thin built cachectic appearing female with past medical history significant for COPD, hypothyroidism was not on any medication, lumbar degenerative disc disease, lumbar radiculopathy, history of PE at the age of 29 and history of perforated peptic ulcer status post gastrectomy. Patient presented to the emergency department with complaints of 24 hours of pain and swelling and redness in her left ankle. She denied any specific injury to the left ankle. She denies any insect bite. Patient also reports subjective fevers prior to admission. Pain is worse with movement and at this point there is restriction of movement. Patient reports swelling of her small joints of the hand off and on which resolve spontaneously. She also reports bluish discoloration of her fingertips but has never been formally diagnosed with any rheumatological conditions. Patient denies any chills, nausea vomiting diarrhea constipation or any other systemic symptoms. Patient denies prior history of gout or any crystal arthropathy in the past. Patient denies any travel outside the country. Infectious disease is consulted for evaluation and management of possible septic arthritis. Review of Systems ROS Limitations: Poor Historian Constitutional: COMPLAINS OF: Fever, DENIES: Diaphoretic episodes, Fatigue, Weight gain, Weight loss, Chills, Dizziness, Change in appetite, Night Sweats Endocrine: DENIES: Abnorml menstrual pattern, Heat/cold intolerance, Polydipsia , Polyuria, Polyphagia Eyes: DENIES: Blurred vision, Diplopia, Eye inflammation, Eye pain, Vision loss , Photosensitivity, Double Vision Ears, nose, mouth, throat: DENIES: Tinnitus, Hearing loss, Vertigo, Nasal discharge, Oral lesions, Throat pain, Hoarseness, Ear Pain, Running Nose, Epistaxis, Sinus Pain, Toothache, Odynophagia Respiratory: DENIES: Apneas, Cough, Snoring, Wheezing, Hemoptysis, Sputum production, Shortness of breath Cardiovascular: DENIES: Chest pain, Palpitations, Syncope, Dyspnea on Exertion , PND, Lower Extremity Edema, Orthopnea, Claudication Gastrointestinal: DENIES: Abdominal pain, Black stools, Bloody stools, Constipation, Diarrhea, Nausea, Vomiting, Difficulty Swallowing, Anorexia Genitourinary: DENIES: Abnormal vaginal bleeding, Dysmenorrhea, Dyspareunia, Sexual dysfunction, Urinary frequency, Urinary incontinence, Urgency, Hematuria , Dysuria, Nocturia, Vaginal discharge Musculoskeletal: COMPLAINS OF: Joint pain, Stiffness, Joint Swelling, DENIES: Muscle aches, Back pain, Neck pain Integumentary: COMPLAINS OF: Abnormal pigmentation, DENIES: Pruritus, Rash, Nail changes, Breast masses, Breast skin changes, Nipple discharge Hematologic/lymphatic: DENIES: Bruising, Lymphadenopathy Immunologic/allergic: DENIES: Eczema, Urticaria Neurologic: DENIES: Abnormal gait, Headache, Localized weakness, Paresthesias, Seizures, Speech Problems, Tremor, Poor Balance Psychiatric: DENIES: Anxiety, Confusion, Mood changes, Depression, Hallucinations, Agitation, Suicidal Ideation, Homicidal Ideation, Delusions Except as stated in HPI: all other systems reviewed are Neg Past Family Social History Allergies: Coded Allergies: penicillin G (Unverified Allergy, Severe, Anaphylaxis, 07/27/17) latex (Unverified Allergy, Intermediate, Rash, 07/27/17) HAPPENS WITH PROLONGED CONTACT Past Medical History chronic obstructive pulmonary disease, hypothyroidism - not on medication, lumbar degenerative disc disease, lumbar radiculopathy, PE at age 29 perforated peptic ulcer s/o gastrectomy Past Surgical History Back surgery L4-5 area partial gastrectomy secondary to perforated peptic ulcer Reported Medications Reported Meds & Active Scripts Active Reported Multiple Vitamin 1 Tab 1 Tab PO DAILY [anti-depressant] Abilify (Aripiprazole) 15 Mg Tab 15 Mg PO DAILY Diazepam 5 Mg Tab 5 Mg PO BID [inhaler] Unknown Dose Active Ordered Medications Current Medications Medications (Trade) Dose Ordered Sig/Taylor Route Start Time Stop Time Status Last Admin (NS Flush) 2 ml UNSCH PRN IV FLUSH 07/27/17 12:30 (NS Flush) 2 ml BID IV FLUSH 07/27/17 21:00 07/28/17 08:32 (Tylenol) 650 mg Q4H PRN PO 07/27/17 12:30 (Zofran Inj) 4 mg Q6H PRN IVP 07/27/17 12:30 (Lovenox Inj) 30 mg Q24H SQ 07/27/17 13:00 07/28/17 12:37 (Narcan Inj) 0.4 mg UNSCH PRN IV PUSH 07/27/17 12:30 (Milk Of Robyn Mcdonald) 30 ml Q12H PRN PO 07/27/17 12:30 Pharmacy Profile Note 0 ml @ 0 mls/hr UNSCH OTHER 07/27/17 12:30 ([place] 5-325 Mg) 1 tab Q4H PRN PO 07/27/17 12:30 07/28/17 04:29 Vancomycin HCl 750 mg/Sodium Chloride 257.5 ml @ 250 mls/hr Q12H IV 07/28/17 01:00 07/28/17 12:37 Miscellaneous Information SPECIFIC LAB TO BE DRAWN:VANCOMYCIN TROUGH DATE TO... ONCE ONCE .XX 07/29/17 00:45 07/29/17 00:46 (Duoneb Neb) 1 ampule Q2HR NEB PRN NEB 07/27/17 18:00 (Ativan Inj) 0.5 mg Q6H PRN IV PUSH 07/27/17 18:00 Family History NC to current ID problems. Social History History of EtOH abuse denies current EtOH use Current tobacco use one pack per day Denies illicit drug use Physical Exam Vital Signs Vital Signs Date Time Temp Pulse Resp B/P (MAP) Pulse Ox O2 Delivery O2 Flow Rate FiO2 07/28/17 08:00 97.3 94 20 140/74 (96) 94 07/28/17 04:00 97.9 92 16 154/70 (98) 90 07/28/17 00:00 98.3 95 18 126/74 (91) 93 07/27/17 20:15 98.0 95 16 122/60 (80) 96 07/27/17 18:14 20 07/27/17 13:35 98.3 100 16 143/68 (93) 95 07/27/17 13:26 Physical Exam GENERAL: Thin built, well-developed patient, in no apparent distress. SKIN: No rashes, ecchymoses or lesions. Bluish discoloration of finger tips. HEAD: Atraumatic. Normocephalic. No temporal or scalp tenderness. EYES: Pupils equal round and reactive. Extraocular motions intact. No scleral icterus. No injection or drainage. ENT: Nose without bleeding, purulent drainage or septal hematoma. Throat without erythema, tonsillar hypertrophy or exudate. Uvula midline. Airway patent. NECK: Trachea midline. Supple, nontender, no meningeal signs. CARDIOVASCULAR: Regular rate and rhythm without murmurs, gallops, or rubs. RESPIRATORY: Clear to auscultation. Breath sounds equal bilaterally. No wheezes , rales, or rhonchi. GASTROINTESTINAL: Abdomen soft, non-tender, nondistended. MUSCULOSKELETAL: Left ankle joint with erythema mild, tenderness and decreased range of motion. NEUROLOGICAL: Awake and alert. Grossly non focal Psych cooperative IV line sites with no e.o infection. Laboratory Laboratory Tests Test 07/27/17 20:35 07/28/17 07:00 Blood Urea Nitrogen 12 11 Creatinine 0.63 0.52 Random Glucose 108 91 Calcium Level 8.7 9.0 Sodium Level 136 136 Potassium Level 3.4 3.6 Chloride Level 100 101 Carbon Dioxide Level 29.0 27.8 Anion Gap 7 7 Estimat Glomerular Filtration Rate 93 116 White Blood Count 12.1 Red Blood Count 4.42 Hemoglobin 12.3 Hematocrit 37.1 Mean Corpuscular Volume 83.8 Mean Corpuscular Hemoglobin 27.7 Mean Corpuscular Hemoglobin Concent 33.1 Red Cell Distribution Width 14.4 Platelet Count 348 Mean Platelet Volume 9.4 Neutrophils (%) (Auto) 73.9 Lymphocytes (%) (Auto) 14.6 Monocytes (%) (Auto) 10.4 Eosinophils (%) (Auto) 0.3 Basophils (%) (Auto) 0.8 Neutrophils # (Auto) 9.0 Lymphocytes # (Auto) 1.8 Monocytes # (Auto) 1.3 Eosinophils # (Auto) 0.0 Basophils # (Auto) 0.1 CBC Comment DIFF FINAL Differential Comment Erythrocyte Sedimentation Rate 66 Free Thyroxine 0.95 Thyroid Stimulating Hormone 3rd Gen 6.560 Date/Time Source Procedure Growth Status 07/27/17 10:00 Fluid Synovial Fluid Gram Stain - Final Resulted 07/27/17 10:00 Fluid Synovial Fluid Body Fluid Culture - Preliminary NO GROWTH IN 24 HOURS. Resulted Result Diagram: 07/28/17 0700 07/28/17 0700 Imaging Last Impressions Ankle X-Ray 07/28/17 0000 Signed Impressions: Service Date/Time: Friday, July 28, 2017 09:20 - CONCLUSION: Negative for fracture or dislocation. Follow up in 7-10 days is suggested if symptoms persist. Darin Gruber MD FACR Chest X-Ray 07/27/17 1217 Signed Impressions: Service Date/Time: Thursday, July 27, 2017 12:37 - CONCLUSION: 1. No acute cardiopulmonary disease. Saleem Peace MD Assessment and Plan Assessment and Plan Possible septic arthritis vs Inflammatory arthritis: Left ankle joint. Patient reports history suspicious of Inflammatory arthritis with multiple hand joint involvement and h/s/o Raynauds. No formal rheumatological diagnosis. COPD stable. Recs DC Vanco IV Observe off antibiotics. Follow joint fluid cultures. Joint fluid was clotted so cell counts not interpretable but no crystals noted. Ok to start trial of steroids to see if inflammation improves. If overnight improves on steroids, cultures from jt fluid negative and clinically does well off antibiotics may consider discharge. May need home health as she lives alone and joint pain is a mobility limiting factor. May need walker depending of degree of improvement in am. Cristian Blunt and patient. Karen Saleem MD Jul 28, 2017 13:16
[2017-07-28 14:28] LABS: ALBUMIN 3.6 GM/DL (3.4-5.0); DIRECT BILIRUBIN ADULT 0.1 MG/DL (0.0-0.2)
[2017-07-28 14:30] LABS: INDIRECT BILIRUBIN 0.2 MG/DL (0.0-0.8); TOTAL BILIRUBIN ADULT 0.3 MG/DL (0.2-1.0)
[2017-07-28 14:39] LABS: RHEUMATOID FACTOR SCREEN NEGATIVE (NEGATIVE)
[2017-07-28 16:00] VITALS: BP 126/57; PULSE 103; RESP 20; TEMP 97.9; O2SAT 91
[2017-07-28] MEDS ORDERED: methylPREDNISolone SOD SUCC 125 MG/2 ML VIAL IV PUSH ONE (16:45)
--- NOTE | 2017-07-28 18:54 | EKG ---
Date Performed: 07/27/2017 Time Performed: 13:13:38 PTAGE: 71 years EKG: Sinus rhythm POSSIBLE LEFT ATRIAL ENLARGEMENT BORDERLINE ECG PREVIOUS TRACING : 05/30/2015 09.08 Compared to prior tracing no significant change DOCTOR: Krista Arora Interpretating Date/Time 07/28/2017 18:53:54
[2017-07-28 20:00] VITALS: BP 136/63; PULSE 97; RESP 18; TEMP 98.3; O2SAT 94
[2017-07-28] MEDS: methylPREDNISolone SOD SUCC 125 MG/2 ML VIAL IV PUSH SCH (22:01)
[2017-07-29] VITALS: BP 141/70; PULSE 89; RESP 16; TEMP 97.6; O2SAT 94
[2017-07-29] MEDS ORDERED: PHARMACY ORDERED LAB ONE (00:45)
[2017-07-29 04:00] VITALS: BP 138/65; PULSE 85; RESP 16; TEMP 97.8; O2SAT 94
--- NOTE | 2017-07-29 08:00 | PD.ORT.PN ---
Subjective Subjective Remarks Resting in bed comfortably Objective Vitals Vital Signs Date Time Temp Pulse Resp B/P (MAP) Pulse Ox O2 Delivery O2 Flow Rate FiO2 07/29/17 04:00 97.8 85 16 138/65 (89) 94 07/29/17 00:00 97.6 89 16 141/70 (93) 94 07/28/17 20:00 98.3 97 18 136/63 (87) 94 07/28/17 20:00 Room Air 07/28/17 16:00 97.9 103 20 126/57 (80) 91 07/28/17 12:00 97.8 105 20 172/67 (102) 92 07/28/17 08:00 97.3 94 20 140/74 (96) 94 I/O 07/28/17 07/28/17 07/28/17 07/29/17 07/29/17 07/29/17 07:00 15:00 23:00 07:00 15:00 23:00 Intake Total 257.5 ml 120 ml 280 ml Balance 257.5 ml 120 ml 280 ml Intake Oral 120 ml 280 ml IV Total 257.5 ml # Voids 3 1 # Bowel Movements 1 0 Result Diagram: 07/28/17 0700 07/28/17 0700 Imaging Last 72 hours Impressions Ankle X-Ray 07/28/17 0000 Signed Impressions: Service Date/Time: Friday, July 28, 2017 09:20 - CONCLUSION: Negative for fracture or dislocation. Follow up in 7-10 days is suggested if symptoms persist. Darin Gruber MD FACR Chest X-Ray 07/27/17 1217 Signed Impressions: Service Date/Time: Thursday, July 27, 2017 12:37 - CONCLUSION: 1. No acute cardiopulmonary disease. Saleem Peace MD Objective Remarks Left lower extremity: Full range of motion and no pain with knee or hip range of motion examination of the ankle reveals continued decreased swelling and improved range of motion of the ankle. Distally intact sensation with good capillary refills. There is swelling a +1. Minimal erythema and no drainage skin is intact Assessment & Plan Assessment and Plan Left ankle pain and swelling Continue to elevate Weightbearing as tolerated No surgical intervention at this time. Lab's are still negative for any infection in the ankle joint German Doss Jr. Jul 29, 2017 08:00
[2017-07-29 08:06] VITALS: BP 118/61; PULSE 99; RESP 16; TEMP 97.6; O2SAT 92
[2017-07-29] MEDS: SODIUM CHLORIDE 0.9% FLUSH 10 ML FLUSH IV FLUSH SCH (08:22)
[2017-07-29] MEDS: methylPREDNISolone SOD SUCC 125 MG/2 ML VIAL IV PUSH SCH (08:33)
--- NOTE | 2017-07-29 09:00 | HHI.PR ---
Subjective Remarks able to walk on left foot today Objective Vitals heart reg lung cta abd s/nt ext left ankle swelling minimal. improved range of motion .. able to bear weight. Vital Signs Date Time Temp Pulse Resp B/P (MAP) Pulse Ox O2 Delivery O2 Flow Rate FiO2 07/29/17 08:06 97.6 99 16 118/61 (80) 92 07/29/17 04:00 97.8 85 16 138/65 (89) 94 07/29/17 00:00 97.6 89 16 141/70 (93) 94 07/28/17 20:00 98.3 97 18 136/63 (87) 94 07/28/17 20:00 Room Air 07/28/17 16:00 97.9 103 20 126/57 (80) 91 07/28/17 12:00 97.8 105 20 172/67 (102) 92 Result Diagram: 07/28/17 0700 07/28/17 0700 Imaging Last Impressions Chest X-Ray 07/27/17 1217 Signed Impressions: Service Date/Time: Thursday, July 27, 2017 12:37 - CONCLUSION: 1. No acute cardiopulmonary disease. Saleem Peace MD A/P Problem List: (1) Inflammatory arthritis ICD Codes: M19.90 - Unspecified osteoarthritis, unspecified site Status: Acute Plan: 1. Left ankle pain/swelling. Recent wrist/mcp/pip swelling and Raynauds phenomena per history. Possible inflammatory arthritis and undiagnosed rheumatological disorder Left ankle aspirated in the emergency department reveals 31,500 synovial white blood cells and no crystals Fluid cultures and Gram stain negative for septic ankle spoke with ID..not felt to be infectious. Ortho agreed will call pcp to f/u cont prednisone and f/u pending labs in office. might need rheum referral by pcp (2) COPD (chronic obstructive pulmonary disease) ICD Codes: J44.9 - Chronic obstructive pulmonary disease, unspecified Status: Chronic Plan: Duo nebs as needed does not appear to be in acute exacerbation Sunil Mayorga MD Jul 29, 2017 09:00
[2017-07-29] MEDS ORDERED: PRED10 PO (09:43)
--- NOTE | 2017-07-29 09:43 | HHI.DCPOC ---
Discharge Care Plan Diagnosis: (1) Inflammatory arthritis Goals to Promote Your Health * To prevent worsening of your condition and complications * To maintain your health at the optimal level Directions to Meet Your Goals Take your medications as prescribed Follow your dietary instruction Follow activity as directed Keep your appointments as scheduled Take your immunizations and boosters as scheduled If your symptoms worsen call your PCP, if no PCP go to Urgent Care Center or Emergency Room Smoking is Dangerous to Your Health. Avoid second hand smoke Call the 24-hour hour crisis hotline for domestic abuse at Sunil Mayorga MD Jul 29, 2017 09:43
--- NOTE | 2017-07-29 09:44 | HHI.FF ---
Face to Face Verification Diagnosis: (1) Inflammatory arthritis Physical Therapy Order: Evaluate and Treat, Improve ambulation Home Health Nursing Order: Medical education Signs/symptoms of disease process Medication education-adverse effect Nursing assessment with vital signs I have seen patient Deneen Todd on 07/29/17. My clinical findings support the need for the requested home health care services because: High risk of falls I certify that my clinical findings support that this patient is homebound because: Unsteady gait/balance Sunil Mayorga MD Jul 29, 2017 09:44
[2017-07-31 17:52] LABS: SJOGRENS ANTIBODY SS-A <1.0 NEG AI (<1.0 NEGATIVE); SJOGRENS ANTIBODY SS-B <1.0 NEG AI (<1.0 NEGATIVE)
== END 2017-07-29 11:38 | disposition home health service (06) | DRG 554 ==
LOC: NEPC 08:28 → NEDA 12:23 → N04B 13:35
PROVIDERS: ADMIT Hospitalist; ATTEND Hospitalist
PROC: 0S9G3ZX Drainage of Left Ankle Joint, Percutaneous Approach, Diagnostic (ICD-10-PCS; principal; 2017-07-27)
DX: M19.072 Primary osteoarthritis, left ankle and foot (principal); R64 Cachexia; J44.9 Chronic obstructive pulmonary disease, unspecified; F03.90 Unspecified dementia, unspecified severity, without behavioral disturbance, psychotic disturbance, mood disturbance, and anxiety; Z68.1 Body mass index [BMI] 19.9 or less, adult; E03.9 Hypothyroidism, unspecified; M06.4 Inflammatory polyarthropathy; I73.00 Raynaud's syndrome without gangrene; M51.16 Intervertebral disc disorders with radiculopathy, lumbar region; F20.9 Schizophrenia, unspecified; F17.210 Nicotine dependence, cigarettes, uncomplicated; F31.9 Bipolar disorder, unspecified; Z86.711 Personal history of pulmonary embolism; Z87.11 Personal history of peptic ulcer disease; Z88.0 Allergy status to penicillin; Z90.3 Acquired absence of stomach [part of]; Z91.040 Latex allergy status
CPT/HCPCS: 20605; 71045; 73610; 80048; 80076; 82550; 84439; 84443; 84550; 85025; 85652; 86038; 86200; 86225; 86235; 86430; 87070; 87205; 89051; 89060; 93005; J1650; J2060; J2930; J3370; J7050